=== PATIENT | female | born 1995 | race Caucasian/White ===

== ENCOUNTER 2023-11-27 23:30 | Emergency (ER) | payer MEDICAID ==
[~2023-11-27] VITALS: Ht 154.9 cm; Wt 60.8 kg
[2023-11-28 01:21] LABS: BASOPHILS % (AUTO) 0.4 % (0.0-2.0); EOSINOPHILS # (AUTO) 0.2 K/uL (0.0-0.7); HEMATOCRIT 41 % (33-45); HEMOGLOBIN 13.9 g/dL (11.5-14.8); LYMPHOCYTES % (AUTO) 36.5 % (20.0-44.0); MEAN CORPUSCULAR HEMOGLOBIN 30 PG (26.0-33.0); MEAN CORPUSCULAR HGB CONC 34 g/dl (31.0-36.0); MEAN CORPUSCULAR VOLUME 88 fL (82-100); MONOCYTES % (AUTO) 9.3 % (2.0-12.0); NEUTROPHILS # (AUTO) 5.7 K/uL (1.8-8.9); NEUTROPHILS % (AUTO) 51.8 % (43.0-81.0); PLATELET COUNT (AUTO) 391 K/uL (150-450); RED BLOOD CELL COUNT(AUTO) 4.65 MIL/uL (4.0-5.2); RED CELL DISTRIBUTION WIDTH 13.4 % (11.5-15.0)
[2023-11-28 01:23] LABS: APPEARANCE,URINE CLEAR (CLEAR); BILIRUBIN,URINE NEGATIVE (NEGATIVE); BLOOD, URINE NEGATIVE Ery/uL (NEGATIVE); COLOR,URINE YELLOW (YELLOW); KETONES,URINE NEGATIVE (NEGATIVE); LEUKOCYTE ESTERASE ,URINE NEGATIVE (NEGATIVE); NITRITE, URINE NEGATIVE (NEGATIVE); PROTEIN,URINE NEGATIVE (NEGATIVE); UGLUCOSE NEGATIVE (NEGATIVE); UROBILINOGEN,URINE 0.2 EU/dL (0.2)
[2023-11-28 01:24] LABS: PREGNANCY TEST URINE QUAL NEGATIVE (NEGATIVE)
[2023-11-28 02:02] LABS: CALCIUM, SERUM 9.6 mg/dL (8.5-10.1); CREATININE 0.6 mg/dL (0.6-1.3); POTASSIUM 3.9 mmol/L (3.5-5.1)
[2023-11-28 02:14] LABS: BILIRUBIN,TOTAL 0.3 mg/dL (0.2-1.0); TOTAL PROTEIN, SERUM 8.1 g/dL (6.4-8.2)
[2023-11-28] MEDS ORDERED: CEPH500C2 PO (02:14)
[2023-11-28 02:36] VITALS: BP 127/93; TEMP 98; O2SAT 100
== END 2023-11-28 02:40 | disposition home or self-care (01) ==
LOC: ER 23:36
DX: I88.9 Nonspecific lymphadenitis, unspecified (principal); J02.9 Acute pharyngitis, unspecified; H92.02 Otalgia, left ear
CPT/HCPCS: 36415; 70490-TC; 80053-TC; 82150-TC; 84703-TC; 85025-TC

== ENCOUNTER 2023-12-06 13:31 | Emergency (ER) | payer MEDICAID, OTHER ==
[~2023-12-06] VITALS: Ht 165.1 cm; Wt 62.6 kg
[~2023-12-06 13:31] MED LIST: CEPH500C2 PO
[2023-12-06 13:35] VITALS: BP 128/71; TEMP 98.7; O2SAT 100
== END 2023-12-06 14:54 | disposition home or self-care (01) ==
LOC: ER 13:37
DX: S63.696A Other sprain of right little finger, initial encounter (principal); Z79.899 Other long term (current) drug therapy; Z60.2 Problems related to living alone; W22.8XXA Striking against or struck by other objects, initial encounter; Y93.89 Activity, other specified; Y92.89 Other specified places as the place of occurrence of the external cause; Y99.8 Other external cause status
CPT/HCPCS: 73130-TC

== ENCOUNTER 2024-01-30 20:38 | Emergency (ER) | payer OTHER ==
[~2024-01-30] VITALS: Ht 154.9 cm; Wt 60.8 kg
[2024-01-30 22:27] VITALS: BP 102/70; TEMP 98.5; O2SAT 98
== END 2024-01-30 23:50 | disposition left against medical advice (07) ==
LOC: ER 20:42
DX: H92.09 Otalgia, unspecified ear (principal); Z53.21 Procedure and treatment not carried out due to patient leaving prior to being seen by health care provider

== ENCOUNTER 2024-01-31 10:15 | Emergency (ER) | payer OTHER ==
[~2024-01-31] VITALS: Ht 154.9 cm; Wt 61.7 kg
[2024-01-31 10:31] VITALS: BP 105/69; TEMP 98.8
--- NOTE | 2024-01-31 10:35 | NUR ---
NASAL CONGESTION, BILAT EAR DISCOMFORT X 4 DAYS, SORE THOAT TODAY
--- NOTE | 2024-01-31 11:03 | NUR ---
covid swab sent to lab
[2024-01-31] MEDS: predniSONE 50 MG TABLET PO ONE (13:17)
[2024-01-31] MEDS ORDERED: predniSONE 20 MG TABLET ONE (13:18)
[2024-01-31 13:22] VITALS: O2SAT 99
[2024-01-31] MEDS: predniSONE 20 MG TABLET PO ONE (13:22)
--- NOTE | 2024-01-31 13:22 | NUR ---
Patient discharged to home in stable condition. Written and verbal after care instructions given. Patient verbalizes understanding of instruction.
== END 2024-01-31 13:22 | disposition home or self-care (01) ==
LOC: ER 10:17
DX: J32.9 Chronic sinusitis, unspecified (principal); H93.8X3 Other specified disorders of ear, bilateral; J02.9 Acute pharyngitis, unspecified; Z60.2 Problems related to living alone; Z20.822 Contact with and (suspected) exposure to COVID-19
CPT/HCPCS: 99283; 87426; J7512